=== PATIENT | male | born 1960 | race Caucasian/White ===

== ENCOUNTER 2018-01-19 09:57 | Emergency (ER) | payer MEDICARE, MEDICAID ==
[~2018-01-19] VITALS: Ht 172.7 cm; Wt 104.0 kg
[~2018-01-19 09:57] MED LIST: ASPI-1265 PO; ATOR80TA PO; CARV12.5 PO; CLON1PAT15 TOP; CLOP75TA15 PO; COL100C PO; FURO-150 PO; GABA300C PO; INSU100C4 SQ; INSU100I25 SQ; INSU100V12 SQ; LACT1CAP26 PO; LISI10TA4 PO; NYSPWD TP; PANT40TA4 PO; VENL75CA55 PO
[2018-01-19] MEDS ORDERED: morphine 4 MG/ML inj SYRINge IV ONE (10:10)
[2018-01-19] MEDS ORDERED: metoclopramide 5 mg/ml inj IV ONE (10:10)
[2018-01-19] MEDS ORDERED: diphenhydrAMINE 50 mg/ml inj IV ONE (10:10)
[2018-01-19] MEDS ORDERED: normal saline 1000ML IV soln IVB ONE (10:10)
[2018-01-19 10:55] LABS: BASOPHILS # (AUTO) 0.1 X10'3 (0-0.2); BASOPHILS % (AUTO) 1.5 % (0-1); EOSINOPHILS % (AUTO) 0.7 % (0-6); HEMOGLOBIN 10.2 g/dl (14.0-17.9); LYMPHOCYTES # (AUTO) 0.8 X10'3 (1.1-4.8); LYMPHOCYTES % (AUTO) 12.7 % (21-51); MEAN CORPUSCULAR HEMOGLOBIN 27.8 PG (27.0-31.0); MEAN CORPUSCULAR HGB CONC 33.1 % (33.0-36.5); MEAN PLATELET VOLUME 9.3 FL (7.4-10.4); MONOCYTES # (AUTO) 0.5 X10'3 (0-0.9); NEUTROPHILS # (AUTO) 4.6 X10'3 (1.8-7.7); NEUTROPHILS % (AUTO) 77.1 % (42-75); PLATELET COUNT 386 X10'3 (140-440); RED BLOOD COUNT 3.69 X10'6 (4.70-6.10); RED CELL DISTRIBUTION WIDTH 20.6 % (11.5-14.5); WHITE BLOOD COUNT 5.9 X10'3 (4.5-11.0)
[2018-01-19 10:58] LABS: INR 1.2 INR; PROTHROMBIN TIME 12.7 SECONDS (9.0-12.0)
[2018-01-19 11:06] LABS: ALANINE AMINOTRANSFERASE 49 U/L (12-78); ALBUMIN 2.6 G/DL (3.4-5.0); ALBUMIN/GLOBULIN RATIO 0.5 (1.1-1.5); ALKALINE PHOSPHATASE 442 IU/L (46-116); ANION GAP 13 (8-16); ASPARTATE AMINO TRANSFERASE 63 U/L (10-37); BLOOD UREA NITROGEN 26 MG/DL (7-18); CALCIUM 8.6 MG/DL (8.5-10.1); CHLORIDE 92 MMOL/L (99-107); CREATININE 1.24 MG/DL (0.60-1.10); MAGNESIUM 1.9 MG/DL (1.5-2.4); POTASSIUM 4.5 MMOL/L (3.5-5.1); SODIUM 129 MMOL/L (135-145); TOTAL CARBON DIOXIDE 23.9 MMOL/L (24-32); TOTAL PROTEIN 8.3 G/DL (6.4-8.2); eGFR 60 ML/MIN
[2018-01-19 11:07] LABS: GLUCOSE 463 MG/DL (70-104)
[2018-01-19] MEDS ORDERED: insulin regular, human 10 units/0.1 ml syringe SQ ONE (11:50)
[2018-01-19] MEDS ORDERED: insulin regular, human 10 units/0.1 ml syringe IV ONE (11:50)
[2018-01-19 18:26] VITALS: BP 160/106
== END 2018-01-19 18:29 | disposition home or self-care (01) ==
LOC: ER 09:58
DX: E11.65 Type 2 diabetes mellitus with hyperglycemia (principal); E86.0 Dehydration; I25.10 Atherosclerotic heart disease of native coronary artery without angina pectoris; I11.0 Hypertensive heart disease with heart failure; I50.9 Heart failure, unspecified; I25.2 Old myocardial infarction; Z98.890 Other specified postprocedural states; Z89.512 Acquired absence of left leg below knee; Z89.511 Acquired absence of right leg below knee; Z88.1 Allergy status to other antibiotic agents; Z79.4 Long term (current) use of insulin; Z79.899 Other long term (current) drug therapy
CPT/HCPCS: 36415; 71045; 80053; 82948; 83605; 83735; 84145; 85025; 85610; 87040; 96361; 96372; 96374; 96375; 99285; J1200; J1815; J2270; J2765; J7030

== ENCOUNTER 2018-01-23 16:54 | Inpatient (IN) | payer MEDICARE, MEDICAID ==
[~2018-01-23] VITALS: Ht 154.9 cm; Wt 70.0 kg
[~2018-01-23 16:54] MED LIST changes: -ASPI-1265 PO; -ATOR80TA PO; -CARV12.5 PO; -CLON1PAT15 TOP; -CLOP75TA15 PO; -COL100C PO; -FURO-150 PO; -LACT1CAP26 PO; -NYSPWD TP; -PANT40TA4 PO
[2018-01-23 17:23] LABS: BASOPHILS # (AUTO) 0.1 X10'3 (0-0.2); BASOPHILS % (AUTO) 0.8 % (0-1); EOSINOPHILS % (AUTO) 0.2 % (0-6); HEMATOCRIT 30.6 % (42.0-52.0); LYMPHOCYTES # (AUTO) 0.9 X10'3 (1.1-4.8); LYMPHOCYTES % (AUTO) 14.2 % (21-51); MEAN CORPUSCULAR HEMOGLOBIN 27.2 PG (27.0-31.0); MEAN CORPUSCULAR HGB CONC 32.7 % (33.0-36.5); MEAN CORPUSCULAR VOLUME 83.1 FL (78-98); MONOCYTES # (AUTO) 0.5 X10'3 (0-0.9); NEUTROPHILS # (AUTO) 4.6 X10'3 (1.8-7.7); NEUTROPHILS % (AUTO) 76.8 % (42-75); PLATELET COUNT 455 X10'3 (140-440); RED BLOOD COUNT 3.68 X10'6 (4.70-6.10); RED CELL DISTRIBUTION WIDTH 21.2 % (11.5-14.5)
[2018-01-23 17:34] LABS: INR 1.7 INR; PARTIAL THROMBOPLASTIN TIME 30 SECONDS (22-32); PROTHROMBIN TIME 17.1 SECONDS (9.0-12.0)
[2018-01-23 17:37] LABS: ALANINE AMINOTRANSFERASE 27 U/L (12-78); ALBUMIN 2.4 G/DL (3.4-5.0); ALBUMIN/GLOBULIN RATIO 0.5 (1.1-1.5); ALKALINE PHOSPHATASE 340 IU/L (46-116); ANION GAP 21 (8-16); ASPARTATE AMINO TRANSFERASE 27 U/L (10-37); BILIRUBIN,TOTAL 1.6 MG/DL (0.1-1.0); BLOOD UREA NITROGEN 22 MG/DL (7-18); BUN/CREATININE RATIO 15.7 (5.4-32.0); CALCIUM 8.5 MG/DL (8.5-10.1); CHLORIDE 93 MMOL/L (99-107); GLUCOSE 422 MG/DL (70-104); POTASSIUM 5.1 MMOL/L (3.5-5.1); SODIUM 130 MMOL/L (135-145); TOTAL CARBON DIOXIDE 15.8 MMOL/L (24-32); TOTAL PROTEIN 7.4 G/DL (6.4-8.2); eGFR 52 ML/MIN
[2018-01-23] MEDS ORDERED: insulin regular, human 10 units/0.1 ml syringe IV ONE (20:35)
[2018-01-23] MEDS ORDERED: normal saline 1000ML IV soln IVB ONE ×2 (20:35→22:30)
[2018-01-23] MEDS ORDERED: acetaminophen 325mg tablet PO ONE (21:00)
[2018-01-23 23:21] LABS: ABG BASE EXCESS -2.6 mmol/L (-2.0-3.0); ABG HCO3 19.2 mmol/L (22.0-26.0); ABG OXYGEN SATURATION 95.5 % (95-98); ABG PCO2 (T) 24.3 mmHg (35.0-48.0); ABG PH (T) 7.516 (7.350-7.450); ALLEN'S TEST Positive; FCOHb 0.5 % (0.5-1.5); FMetHb 0.3 % (0.3-1.12); FO2Hb 94.7 % (94-100); PATIENT TEMPERATURE 36.8; TOTAL HEMOGLOBIN 10.3 G/dl (14.0-18.0)
[2018-01-24] MEDS ORDERED: vancomycin/NS 1 GM ADD-VANTAGE 250 ML IV ONE ×2 (00:05→06:20)
[2018-01-24] MEDS ORDERED: normal saline 1000ml 1,000 ML IV ONE (00:05)
[2018-01-24] MEDS: piperacillin/tazo 3.375gm/50ml 50 ML IV SCH ×4 (02:13→20:11)
[2018-01-24] MEDS ORDERED: dextrose ORAL solution 15 GM/59 ML bottle PO PRN ×2 (02:35)
[2018-01-24] MEDS ORDERED: ondansetron/PF 4mg/2ml inj IV ONE (02:35)
[2018-01-24] MEDS ORDERED: glucagon, human recombinant 1mg kit SUBCUT PRN (02:35)
[2018-01-24] MEDS ORDERED: bisacodyl 10mg suppository rectal RC PRN (02:35)
[2018-01-24] MEDS ORDERED: mag hydrox/Alum hydrox/simeth 30ml oral suspension PO PRN (02:35)
[2018-01-24] MEDS ORDERED: MESSAGE TO PHARMACY PO ONE (02:35)
[2018-01-24] MEDS ORDERED: ondansetron/PF 4mg/2ml inj IV PRN (02:35)
[2018-01-24] MEDS ORDERED: acetaminophen 325mg tablet PO PRN (02:35)
[2018-01-24] MEDS ORDERED: dextrose 50%-water 50ml dispensing syringe IV PRN (02:35)
[2018-01-24] MEDS: sodium chloride 0.45% 1,000 ML IV SCH ×2 (03:16→12:34)
[2018-01-24 04:30] VITALS: BP 156/98
[2018-01-24] MEDS ORDERED: LORazepam 1 MG tablet PO ONE (04:30)
[2018-01-24 07:00] VITALS: BP 139/84
[2018-01-24] MEDS: insulin Lispro (HumaLOG) vial - multi-dose SQ SCH ×4 (08:43→22:11)
[2018-01-24] MEDS: heparin, porcine 5000 units/ml vial SQ SCH ×2 (08:44→20:10)
[2018-01-24 11:00] VITALS: BP 128/81
[2018-01-24 12:31] LABS: ABG BASE EXCESS -1.5 mmol/L (-2.0-3.0); ABG HCO3 21.4 mmol/L (22.0-26.0); ABG OXYGEN SATURATION 95.3 % (95-98); ABG PCO2 (T) 29.4 mmHg (35.0-48.0); ABG PH (T) 7.478 (7.350-7.450); ABG PO2 (T) 77.6 mmHg (83-108); ALLEN'S TEST Positive; FCOHb 0.9 % (0.5-1.5); FMetHb 0.3 % (0.3-1.12); FO2Hb 94.2 % (94-100); PATIENT TEMPERATURE 36.8; TOTAL HEMOGLOBIN 10.6 G/dl (14.0-18.0)
[2018-01-24 15:00] VITALS: BP 139/84
[2018-01-24 19:00] VITALS: BP 150/99
[2018-01-24] MEDS: lactobacillus rhamnosus 10,000 MMU CELLS/CAPSULE PO SCH (20:09)
[2018-01-24] MEDS: normal saline 1000ml 1,000 ML IV SCH (22:06)
[2018-01-24] MEDS: insulin glargine (Lantus) pen - multi-dose SQ SCH (22:15)
[2018-01-24 23:00] VITALS: BP 135/95
[2018-01-25] MEDS ORDERED: vancomycin/NS 1 GM ADD-VANTAGE 250 ML IV SCH (01:00)
[2018-01-25] MEDS: piperacillin/tazo 3.375gm/50ml 50 ML IV SCH ×4 (02:37→20:22)
[2018-01-25 03:00] VITALS: BP 148/84
[2018-01-25 05:50] LABS: BASOPHILS # (AUTO) 0.1 X10'3 (0-0.2); BASOPHILS % (AUTO) 2.2 % (0-1); EOSINOPHILS # (AUTO) 0.5 X10'3 (0-0.9); EOSINOPHILS % (AUTO) 7.7 % (0-6); HEMATOCRIT 30.5 % (42.0-52.0); HEMOGLOBIN 9.8 g/dl (14.0-17.9); LYMPHOCYTES % (AUTO) 16.3 % (21-51); MEAN CORPUSCULAR HEMOGLOBIN 26.9 PG (27.0-31.0); MEAN CORPUSCULAR HGB CONC 32.3 % (33.0-36.5); MEAN CORPUSCULAR VOLUME 83.3 FL (78-98); MEAN PLATELET VOLUME 8.7 FL (7.4-10.4); MONOCYTES # (AUTO) 0.5 X10'3 (0-0.9); MONOCYTES % (AUTO) 7.9 % (2-12); NEUTROPHILS % (AUTO) 65.9 % (42-75); PLATELET COUNT 388 X10'3 (140-440); RED BLOOD COUNT 3.65 X10'6 (4.70-6.10); RED CELL DISTRIBUTION WIDTH 21.1 % (11.5-14.5); WHITE BLOOD COUNT 6.1 X10'3 (4.5-11.0)
[2018-01-25 06:00] VITALS: BP 153/103
[2018-01-25 06:42] LABS: ALANINE AMINOTRANSFERASE 28 U/L (12-78); ALBUMIN/GLOBULIN RATIO 0.4 (1.1-1.5); ALKALINE PHOSPHATASE 276 IU/L (46-116); ANION GAP 10 (8-16); ASPARTATE AMINO TRANSFERASE 32 U/L (10-37); BILIRUBIN,TOTAL 0.8 MG/DL (0.1-1.0); BLOOD UREA NITROGEN 19 MG/DL (7-18); BUN/CREATININE RATIO 15.8 (5.4-32.0); CALCIUM 8.3 MG/DL (8.5-10.1); CHLORIDE 102 MMOL/L (99-107); GLUCOSE 147 MG/DL (70-104); POTASSIUM 3.4 MMOL/L (3.5-5.1); SODIUM 136 MMOL/L (135-145); TOTAL CARBON DIOXIDE 23.9 MMOL/L (24-32); TOTAL PROTEIN 6.5 G/DL (6.4-8.2); eGFR 62 ML/MIN
[2018-01-25] MEDS: lactobacillus rhamnosus 10,000 MMU CELLS/CAPSULE PO SCH ×2 (07:31→20:22)
[2018-01-25] MEDS: heparin, porcine 5000 units/ml vial SQ SCH ×2 (07:32→20:22)
[2018-01-25] MEDS: lisinopril 10 MG tablet PO SCH (08:59)
[2018-01-25] MEDS: insulin Lispro (HumaLOG) vial - multi-dose SQ SCH ×3 (09:01→20:21)
[2018-01-25] MEDS: normal saline 1000ml 1,000 ML IV SCH ×2 (09:03→21:40)
[2018-01-25 11:00] VITALS: BP 151/103
[2018-01-25] MEDS: vancomycin/NS 1 GM ADD-VANTAGE 250 ML IV SCH (13:14)
[2018-01-25 15:00] VITALS: BP 154/93
[2018-01-25 19:00] VITALS: BP 158/92
[2018-01-25] MEDS: insulin glargine (Lantus) pen - multi-dose SQ SCH (22:10)
[2018-01-25 23:00] VITALS: BP 146/93
[2018-01-26] MEDS: vancomycin/NS 1 GM ADD-VANTAGE 250 ML IV SCH ×2 (00:23→13:39)
[2018-01-26] MEDS: piperacillin/tazo 3.375gm/50ml 50 ML IV SCH ×4 (02:35→19:43)
[2018-01-26 03:00] VITALS: BP 162/47
[2018-01-26] MEDS: HYDROcodone/acetaminophen 5mg/325mg tablet PO PRN (03:05)
[2018-01-26 03:17] LABS: CLARITY,URINE SLIGHTLY CLOUDY (Clear); COLOR,URINE YELLOW (Yellow); GLUCOSE, URINE NEGATIVE (Neg); KETONES,URINE NEGATIVE (Neg); LEUKOCYTE ESTERASE ,URINE NEGATIVE (Neg); NITRITES, URINE NEGATIVE (Neg); OCCULT BLOOD,URINE TRACE-INTACT (Neg); PROTEIN,URINE NEGATIVE (Neg); UROBILINOGEN,URINE 0.2 E.U/dL (0.2-1.0)
[2018-01-26 03:22] LABS: UA COLLECTION TYPE NON-SPECIFIED
[2018-01-26 03:24] LABS: BACTERIA,URINE FEW /HPF (Neg); RBC,URINE 0-2 /HPF (0-2); SQUAMOUS EPITHELIAL CELL,UR FEW /LPF (FEW); URIC ACID CRYSTALS 4+ /HPF (NEGATIVE); WBC,URINE NONE SEEN /HPF (0-4)
[2018-01-26 06:00] VITALS: BP 145/92
[2018-01-26 06:03] LABS: BASOPHILS # (AUTO) 0.1 X10'3 (0-0.2); BASOPHILS % (AUTO) 0.5 % (0-1); EOSINOPHILS # (AUTO) 0.1 X10'3 (0-0.9); HEMATOCRIT 31.9 % (42.0-52.0); HEMOGLOBIN 10.4 g/dl (14.0-17.9); LYMPHOCYTES # (AUTO) 0.3 X10'3 (1.1-4.8); LYMPHOCYTES % (AUTO) 2.9 % (21-51); MEAN CORPUSCULAR HEMOGLOBIN 27.2 PG (27.0-31.0); MEAN CORPUSCULAR HGB CONC 32.4 % (33.0-36.5); MEAN PLATELET VOLUME 8.5 FL (7.4-10.4); MONOCYTES # (AUTO) 0.3 X10'3 (0-0.9); MONOCYTES % (AUTO) 2.8 % (2-12); NEUTROPHILS # (AUTO) 9.9 X10'3 (1.8-7.7); NEUTROPHILS % (AUTO) 92.8 % (42-75); PLATELET COUNT 420 X10'3 (140-440); RED CELL DISTRIBUTION WIDTH 21.6 % (11.5-14.5); WHITE BLOOD COUNT 10.6 X10'3 (4.5-11.0)
[2018-01-26 06:30] LABS: ALANINE AMINOTRANSFERASE 24 U/L (12-78); ALBUMIN/GLOBULIN RATIO 0.4 (1.1-1.5); ALKALINE PHOSPHATASE 262 IU/L (46-116); ANION GAP 11 (8-16); ASPARTATE AMINO TRANSFERASE 36 U/L (10-37); BILIRUBIN,TOTAL 0.9 MG/DL (0.1-1.0); BLOOD UREA NITROGEN 13 MG/DL (7-18); BUN/CREATININE RATIO 12.4 (5.4-32.0); CALCIUM 7.9 MG/DL (8.5-10.1); CHLORIDE 102 MMOL/L (99-107); CREATININE 1.05 MG/DL (0.60-1.10); GLUCOSE 129 MG/DL (70-104); POTASSIUM 3.2 MMOL/L (3.5-5.1); SODIUM 136 MMOL/L (135-145); TOTAL CARBON DIOXIDE 23.2 MMOL/L (24-32); TOTAL PROTEIN 6.5 G/DL (6.4-8.2); eGFR 72 ML/MIN
[2018-01-26] MEDS: lisinopril 10 MG tablet PO SCH (08:23)
[2018-01-26] MEDS: lactobacillus rhamnosus 10,000 MMU CELLS/CAPSULE PO SCH ×2 (08:23→19:43)
[2018-01-26] MEDS: heparin, porcine 5000 units/ml vial SQ SCH ×2 (08:24→19:44)
[2018-01-26] MEDS: insulin Lispro (HumaLOG) vial - multi-dose SQ SCH ×3 (08:32→19:59)
[2018-01-26] MEDS ORDERED: potassium Cl 20 mEq SR tablet PO PRN (09:00)
[2018-01-26] MEDS ORDERED: magnesium/D5W IVPB 100 ML IV PRN (09:00)
[2018-01-26] MEDS ORDERED: magnesium 4gm in 100ml NS 100 ML IV PRN (09:00)
[2018-01-26] MEDS ORDERED: magnesium Cl slow-release 64mg tablet PO PRN (09:00)
[2018-01-26] MEDS ORDERED: potassium Cl 40MEQ/NS 500ml 500 ML IV PRN ×2 (09:00)
[2018-01-26] MEDS: potassium Cl 20 mEq SR tablet PO PRN ×3 (09:43→19:44)
[2018-01-26 11:00] VITALS: BP 144/88
[2018-01-26] MEDS: normal saline 1000ml 1,000 ML IV SCH (11:00)
[2018-01-26] MEDS: LORazepam 2 mg/ml vial IV PRN ×2 (11:45→16:10)
[2018-01-26] MEDS: morphine 2 MG/ML inj. syringe IV PRN ×2 (11:46→16:10)
[2018-01-26] MEDS ORDERED: GABA400C PO (11:47)
[2018-01-26 15:00] VITALS: BP 152/100
[2018-01-26] MEDS: gabapentin 400mg capsule PO SCH (15:46)
[2018-01-26 19:00] VITALS: BP 152/107
[2018-01-26] MEDS: insulin glargine (Lantus) pen - multi-dose SQ SCH (21:39)
[2018-01-26 23:00] VITALS: BP 114/72
[2018-01-27] MEDS: normal saline 1000ml 1,000 ML IV SCH ×2 (00:20→11:54)
[2018-01-27] MEDS: gabapentin 400mg capsule PO SCH ×3 (00:22→17:34)
[2018-01-27] MEDS ORDERED: VANCOMYCIN LEVEL IV ONE (00:30)
[2018-01-27] MEDS: vancomycin/NS 1 GM ADD-VANTAGE 250 ML IV SCH (01:43)
[2018-01-27 01:45] LABS: ALANINE AMINOTRANSFERASE 20 U/L (12-78); ALBUMIN 1.9 G/DL (3.4-5.0); ALBUMIN/GLOBULIN RATIO 0.4 (1.1-1.5); ALKALINE PHOSPHATASE 228 IU/L (46-116); ANION GAP 6 (8-16); ASPARTATE AMINO TRANSFERASE 31 U/L (10-37); BILIRUBIN,TOTAL 0.7 MG/DL (0.1-1.0); BLOOD UREA NITROGEN 10 MG/DL (7-18); CALCIUM 7.7 MG/DL (8.5-10.1); CHLORIDE 104 MMOL/L (99-107); GLUCOSE 106 MG/DL (70-104); MAGNESIUM 1.5 MG/DL (1.5-2.4); POTASSIUM 3.5 MMOL/L (3.5-5.1); SODIUM 136 MMOL/L (135-145); TOTAL CARBON DIOXIDE 26.2 MMOL/L (24-32); TOTAL PROTEIN 6.2 G/DL (6.4-8.2); VANCOMYCIN,TROUGH 18.4 UG/ML (6.0-14.0); eGFR 76 ML/MIN
[2018-01-27 01:59] LABS: BASOPHILS % (AUTO) 0.7 % (0-1); EOSINOPHILS # (AUTO) 0.4 X10'3 (0-0.9); EOSINOPHILS % (AUTO) 7.4 % (0-6); HEMATOCRIT 30.8 % (42.0-52.0); HEMOGLOBIN 9.8 g/dl (14.0-17.9); LYMPHOCYTES # (AUTO) 0.9 X10'3 (1.1-4.8); LYMPHOCYTES % (AUTO) 18.1 % (21-51); MEAN CORPUSCULAR HEMOGLOBIN 26.9 PG (27.0-31.0); MEAN CORPUSCULAR HGB CONC 31.9 % (33.0-36.5); MEAN CORPUSCULAR VOLUME 84.3 FL (78-98); MEAN PLATELET VOLUME 8.9 FL (7.4-10.4); MONOCYTES # (AUTO) 0.4 X10'3 (0-0.9); MONOCYTES % (AUTO) 7.8 % (2-12); NEUTROPHILS # (AUTO) 3.5 X10'3 (1.8-7.7); PLATELET COUNT 326 X10'3 (140-440); RED BLOOD COUNT 3.65 X10'6 (4.70-6.10); RED CELL DISTRIBUTION WIDTH 21.7 % (11.5-14.5); WHITE BLOOD COUNT 5.2 X10'3 (4.5-11.0)
[2018-01-27 03:00] VITALS: BP 158/110
[2018-01-27] MEDS: piperacillin/tazo 3.375gm/50ml 50 ML IV SCH ×2 (03:00→08:32)
[2018-01-27 06:00] VITALS: BP 142/92
[2018-01-27] MEDS: lactobacillus rhamnosus 10,000 MMU CELLS/CAPSULE PO SCH ×2 (08:32→19:24)
[2018-01-27] MEDS: lisinopril 10 MG tablet PO SCH ×2 (08:32→22:07)
[2018-01-27] MEDS: heparin, porcine 5000 units/ml vial SQ SCH ×2 (08:33→19:26)
[2018-01-27] MEDS: insulin Lispro (HumaLOG) vial - multi-dose SQ SCH ×3 (08:43→19:32)
[2018-01-27 11:00] VITALS: BP 147/98
[2018-01-27] MEDS: morphine 2 MG/ML inj. syringe IV PRN (13:36)
[2018-01-27] MEDS: LORazepam 2 mg/ml vial IV PRN (13:36)
[2018-01-27] MEDS: doxycycline hyclate 100mg tablet.DR PO SCH (17:34)
[2018-01-27] MEDS: amox tr/potassium clavulanate 875/125mg TAB PO SCH (17:34)
[2018-01-27] MEDS ORDERED: gadopentetate dimeglumine 7.5 MMOL/15 ML syringe ONE (18:14)
[2018-01-27 19:00] VITALS: BP 158/108
[2018-01-27] MEDS: insulin glargine (Lantus) pen - multi-dose SQ SCH (22:12)
[2018-01-27 23:00] VITALS: BP 168/110
[2018-01-28] MEDS: gabapentin 400mg capsule PO SCH ×4 (00:25→23:48)
[2018-01-28] MEDS: normal saline 1000ml 1,000 ML IV SCH (00:28)
[2018-01-28 03:00] VITALS: BP 161/110
[2018-01-28 06:02] LABS: BASOPHILS # (AUTO) 0.1 X10'3 (0-0.2); BASOPHILS % (AUTO) 1.1 % (0-1); EOSINOPHILS # (AUTO) 0.5 X10'3 (0-0.9); EOSINOPHILS % (AUTO) 8.6 % (0-6); HEMATOCRIT 33.2 % (42.0-52.0); HEMOGLOBIN 10.6 g/dl (14.0-17.9); LYMPHOCYTES # (AUTO) 1.1 X10'3 (1.1-4.8); LYMPHOCYTES % (AUTO) 20.3 % (21-51); MEAN CORPUSCULAR HEMOGLOBIN 26.9 PG (27.0-31.0); MEAN CORPUSCULAR VOLUME 84.2 FL (78-98); MEAN PLATELET VOLUME 8.4 FL (7.4-10.4); MONOCYTES # (AUTO) 0.5 X10'3 (0-0.9); MONOCYTES % (AUTO) 8.8 % (2-12); NEUTROPHILS # (AUTO) 3.4 X10'3 (1.8-7.7); NEUTROPHILS % (AUTO) 61.2 % (42-75); PLATELET COUNT 350 X10'3 (140-440); RED BLOOD COUNT 3.94 X10'6 (4.70-6.10); RED CELL DISTRIBUTION WIDTH 22.1 % (11.5-14.5); WHITE BLOOD COUNT 5.5 X10'3 (4.5-11.0)
[2018-01-28 06:22] LABS: ALANINE AMINOTRANSFERASE 18 U/L (12-78); ALBUMIN 1.9 G/DL (3.4-5.0); ALBUMIN/GLOBULIN RATIO 0.4 (1.1-1.5); ALKALINE PHOSPHATASE 229 IU/L (46-116); ANION GAP 8 (8-16); ASPARTATE AMINO TRANSFERASE 31 U/L (10-37); BILIRUBIN,TOTAL 0.5 MG/DL (0.1-1.0); BLOOD UREA NITROGEN 10 MG/DL (7-18); BUN/CREATININE RATIO 10.2 (5.4-32.0); CALCIUM 8.1 MG/DL (8.5-10.1); CHLORIDE 106 MMOL/L (99-107); CREATININE 0.98 MG/DL (0.60-1.10); GLUCOSE 103 MG/DL (70-104); MAGNESIUM 1.6 MG/DL (1.5-2.4); POTASSIUM 3.8 MMOL/L (3.5-5.1); SODIUM 139 MMOL/L (135-145); TOTAL CARBON DIOXIDE 25.2 MMOL/L (24-32); TOTAL PROTEIN 6.6 G/DL (6.4-8.2); eGFR 78 ML/MIN
[2018-01-28 07:00] VITALS: BP 156/106
[2018-01-28] MEDS: lisinopril 10 MG tablet PO SCH ×2 (08:24→19:27)
[2018-01-28] MEDS: amox tr/potassium clavulanate 875/125mg TAB PO SCH ×3 (08:24→21:00)
[2018-01-28] MEDS: lactobacillus rhamnosus 10,000 MMU CELLS/CAPSULE PO SCH ×2 (08:24→19:26)
[2018-01-28] MEDS: doxycycline hyclate 100mg tablet.DR PO SCH ×2 (08:24→21:02)
[2018-01-28] MEDS: heparin, porcine 5000 units/ml vial SQ SCH ×2 (08:25→19:28)
[2018-01-28] MEDS: insulin Lispro (HumaLOG) vial - multi-dose SQ SCH ×3 (08:32→19:38)
[2018-01-28 11:00] VITALS: BP 155/111
[2018-01-28] MEDS: LORazepam 2 mg/ml vial IV PRN ×2 (11:32→21:00)
[2018-01-28] MEDS: morphine 2 MG/ML inj. syringe IV PRN ×2 (11:33→16:20)
[2018-01-28 19:00] VITALS: BP 154/100
[2018-01-28] MEDS: insulin glargine (Lantus) pen - multi-dose SQ SCH (21:25)
[2018-01-28 23:00] VITALS: BP 152/103
[2018-01-29 03:00] VITALS: BP 159/92
[2018-01-29] MEDS: dextrose 50%-water 50ml dispensing syringe IV PRN ×2 (05:21→06:31)
[2018-01-29 05:57] LABS: BASOPHILS # (AUTO) 0.1 X10'3 (0-0.2); BASOPHILS % (AUTO) 1.1 % (0-1); EOSINOPHILS # (AUTO) 0.2 X10'3 (0-0.9); EOSINOPHILS % (AUTO) 3.5 % (0-6); HEMATOCRIT 32.5 % (42.0-52.0); HEMOGLOBIN 10.6 g/dl (14.0-17.9); LYMPHOCYTES % (AUTO) 17.5 % (21-51); MEAN CORPUSCULAR HEMOGLOBIN 27.2 PG (27.0-31.0); MEAN CORPUSCULAR HGB CONC 32.6 % (33.0-36.5); MEAN CORPUSCULAR VOLUME 83.3 FL (78-98); MEAN PLATELET VOLUME 8.6 FL (7.4-10.4); MONOCYTES # (AUTO) 0.6 X10'3 (0-0.9); MONOCYTES % (AUTO) 10.1 % (2-12); NEUTROPHILS # (AUTO) 3.9 X10'3 (1.8-7.7); NEUTROPHILS % (AUTO) 67.8 % (42-75); PLATELET COUNT 349 X10'3 (140-440); RED CELL DISTRIBUTION WIDTH 21.7 % (11.5-14.5); WHITE BLOOD COUNT 5.8 X10'3 (4.5-11.0)
[2018-01-29 06:39] LABS: ALANINE AMINOTRANSFERASE 27 U/L (12-78); ALBUMIN 2.1 G/DL (3.4-5.0); ALBUMIN/GLOBULIN RATIO 0.4 (1.1-1.5); ALKALINE PHOSPHATASE 234 IU/L (46-116); ANION GAP 8 (8-16); ASPARTATE AMINO TRANSFERASE 34 U/L (10-37); BILIRUBIN,TOTAL 0.6 MG/DL (0.1-1.0); BLOOD UREA NITROGEN 11 MG/DL (7-18); CALCIUM 8.8 MG/DL (8.5-10.1); CHLORIDE 105 MMOL/L (99-107); CREATININE 0.92 MG/DL (0.60-1.10); MAGNESIUM 1.6 MG/DL (1.5-2.4); POTASSIUM 3.4 MMOL/L (3.5-5.1); SODIUM 139 MMOL/L (135-145); TOTAL CARBON DIOXIDE 25.8 MMOL/L (24-32); TOTAL PROTEIN 7.1 G/DL (6.4-8.2); eGFR 84 ML/MIN
[2018-01-29 06:42] LABS: GLUCOSE 39 MG/DL (70-104)
[2018-01-29 06:44] VITALS: BP 141/95
[2018-01-29] MEDS: lisinopril 10 MG tablet PO SCH ×2 (07:16→19:04)
[2018-01-29] MEDS: doxycycline hyclate 100mg tablet.DR PO SCH ×2 (07:16→17:39)
[2018-01-29] MEDS: lactobacillus rhamnosus 10,000 MMU CELLS/CAPSULE PO SCH ×2 (07:16→19:04)
[2018-01-29] MEDS: gabapentin 400mg capsule PO SCH ×2 (07:17→15:21)
[2018-01-29] MEDS: heparin, porcine 5000 units/ml vial SQ SCH ×2 (07:17→19:04)
[2018-01-29] MEDS: potassium Cl 20 mEq SR tablet PO PRN (07:17)
[2018-01-29 11:00] VITALS: BP 177/121
[2018-01-29] MEDS ORDERED: amLODIPine 5mg tablet PO ONE (12:30)
[2018-01-29 15:00] VITALS: BP 166/120
[2018-01-29] MEDS: LORazepam 2 mg/ml vial IV PRN ×2 (15:21→21:56)
[2018-01-29] MEDS: morphine 2 MG/ML inj. syringe IV PRN ×2 (15:22→21:56)
[2018-01-29] MEDS: amox tr/potassium clavulanate 875/125mg TAB PO SCH (17:39)
[2018-01-29 19:00] VITALS: BP 150/114
[2018-01-29] MEDS: insulin Lispro (HumaLOG) vial - multi-dose SQ SCH (19:04)
[2018-01-29 23:00] VITALS: BP 143/100
[2018-01-30] MEDS: gabapentin 400mg capsule PO SCH ×3 (00:51→16:33)
[2018-01-30 03:00] VITALS: BP 156/110
[2018-01-30 06:21] LABS: BASOPHILS # (AUTO) 0.1 X10'3 (0-0.2); BASOPHILS % (AUTO) 1.2 % (0-1); EOSINOPHILS # (AUTO) 0.4 X10'3 (0-0.9); EOSINOPHILS % (AUTO) 8.1 % (0-6); HEMATOCRIT 32.8 % (42.0-52.0); HEMOGLOBIN 10.8 g/dl (14.0-17.9); LYMPHOCYTES # (AUTO) 1.1 X10'3 (1.1-4.8); LYMPHOCYTES % (AUTO) 23.8 % (21-51); MEAN CORPUSCULAR HEMOGLOBIN 27.2 PG (27.0-31.0); MEAN CORPUSCULAR HGB CONC 32.9 % (33.0-36.5); MEAN CORPUSCULAR VOLUME 82.6 FL (78-98); MEAN PLATELET VOLUME 8.8 FL (7.4-10.4); MONOCYTES # (AUTO) 0.4 X10'3 (0-0.9); MONOCYTES % (AUTO) 8.9 % (2-12); NEUTROPHILS # (AUTO) 2.7 X10'3 (1.8-7.7); PLATELET COUNT 315 X10'3 (140-440); RED BLOOD COUNT 3.97 X10'6 (4.70-6.10); RED CELL DISTRIBUTION WIDTH 21.7 % (11.5-14.5); WHITE BLOOD COUNT 4.7 X10'3 (4.5-11.0)
[2018-01-30 06:25] LABS: MAGNESIUM 1.5 MG/DL (1.5-2.4)
[2018-01-30 06:48] VITALS: BP 145/103
[2018-01-30 06:53] LABS: ALANINE AMINOTRANSFERASE 23 U/L (12-78); ALBUMIN/GLOBULIN RATIO 0.4 (1.1-1.5); ALKALINE PHOSPHATASE 228 IU/L (46-116); ANION GAP 9 (8-16); ASPARTATE AMINO TRANSFERASE 36 U/L (10-37); BILIRUBIN,TOTAL 0.5 MG/DL (0.1-1.0); BLOOD UREA NITROGEN 12 MG/DL (7-18); CALCIUM 8.7 MG/DL (8.5-10.1); CHLORIDE 105 MMOL/L (99-107); CREATININE 0.92 MG/DL (0.60-1.10); GLUCOSE 124 MG/DL (70-104); SODIUM 139 MMOL/L (135-145); TOTAL CARBON DIOXIDE 24.8 MMOL/L (24-32); TOTAL PROTEIN 6.8 G/DL (6.4-8.2); eGFR 84 ML/MIN
[2018-01-30] MEDS: amox tr/potassium clavulanate 875/125mg TAB PO SCH ×2 (07:40→18:14)
[2018-01-30] MEDS: lisinopril 10 MG tablet PO SCH (07:40)
[2018-01-30] MEDS: lactobacillus rhamnosus 10,000 MMU CELLS/CAPSULE PO SCH ×2 (07:40→20:12)
[2018-01-30] MEDS: heparin, porcine 5000 units/ml vial SQ SCH ×2 (07:40→20:13)
[2018-01-30] MEDS: doxycycline hyclate 100mg tablet.DR PO SCH ×2 (07:40→18:14)
[2018-01-30] MEDS ORDERED: amLODIPine 2.5mg tablet PO SCH (08:00)
[2018-01-30] MEDS: insulin Lispro (HumaLOG) vial - multi-dose SQ SCH ×2 (09:19→14:45)
[2018-01-30] MEDS: LORazepam 2 mg/ml vial IV PRN ×2 (09:27→16:33)
[2018-01-30] MEDS: morphine 2 MG/ML inj. syringe IV PRN ×3 (09:28→21:44)
[2018-01-30] MEDS ORDERED: hydrALAZINE 20mg/ml inj. IV PRN (09:35)
[2018-01-30] MEDS: furosemide 20MG tablet PO SCH (10:41)
[2018-01-30] MEDS: lisinopril 20mg tablet PO SCH (10:41)
[2018-01-30 11:00] VITALS: BP 136/93
[2018-01-30 15:00] VITALS: BP 155/105
[2018-01-30 19:00] VITALS: BP 160/89
[2018-01-30 23:00] VITALS: BP 147/80
[2018-01-31 03:00] VITALS: BP 147/82
[2018-01-31] MEDS: morphine 2 MG/ML inj. syringe IV PRN (05:42)
[2018-01-31 06:00] VITALS: BP 161/103
[2018-01-31 06:19] LABS: MAGNESIUM 1.5 MG/DL (1.5-2.4); POTASSIUM 4.4 MMOL/L (3.5-5.1)
[2018-01-31] MEDS ORDERED: amLODIPine 2.5mg tablet PO SCH (08:00)
[2018-01-31] MEDS: insulin Lispro (HumaLOG) vial - multi-dose SQ SCH ×2 (08:29→12:42)
[2018-01-31] MEDS: LORazepam 2 mg/ml vial IV PRN (08:35)
[2018-01-31] MEDS: lisinopril 20mg tablet PO SCH (08:36)
[2018-01-31] MEDS: heparin, porcine 5000 units/ml vial SQ SCH (08:36)
[2018-01-31] MEDS: amox tr/potassium clavulanate 875/125mg TAB PO SCH (08:36)
[2018-01-31] MEDS: doxycycline hyclate 100mg tablet.DR PO SCH (08:36)
[2018-01-31] MEDS: gabapentin 400mg capsule PO SCH ×2 (08:36)
[2018-01-31] MEDS: lactobacillus rhamnosus 10,000 MMU CELLS/CAPSULE PO SCH (08:37)
[2018-01-31] MEDS: HYDROcodone/acetaminophen 5mg/325mg tablet PO PRN (08:37)
[2018-01-31] MEDS: furosemide 20MG tablet PO SCH (08:37)
[2018-01-31] MEDS ORDERED: amLODIPine 5mg tablet PO ONE (09:10)
[2018-01-31 11:00] VITALS: BP 129/93
[2018-02-01] MEDS ORDERED: amLODIPine 2.5mg tablet PO SCH (08:00)
== END 2018-01-31 14:50 | DRG 564 ==
LOC: ER 16:55 → ED HOLD 01-24 02:34 → PCU 3S 01-24 04:03
PROVIDERS: ADMIT Emergency Medicine; ATTEND Family Medicine
DX: T87.44 Infection of amputation stump, left lower extremity (principal); A41.9 Sepsis, unspecified organism; I42.9 Cardiomyopathy, unspecified; I50.42 Chronic combined systolic (congestive) and diastolic (congestive) heart failure; L03.116 Cellulitis of left lower limb; I13.0 Hypertensive heart and chronic kidney disease with heart failure and stage 1 through stage 4 chronic kidney disease, or unspecified chronic kidney disease; T87.81 Dehiscence of amputation stump; E11.43 Type 2 diabetes mellitus with diabetic autonomic (poly)neuropathy; K31.84 Gastroparesis; D64.9 Anemia, unspecified; E11.65 Type 2 diabetes mellitus with hyperglycemia; E78.5 Hyperlipidemia, unspecified; F41.9 Anxiety disorder, unspecified; G89.29 Other chronic pain; N18.9 Chronic kidney disease, unspecified; I25.10 Atherosclerotic heart disease of native coronary artery without angina pectoris; Y83.5 Amputation of limb(s) as the cause of abnormal reaction of the patient, or of later complication, without mention of misadventure at the time of the procedure; E11.21 Type 2 diabetes mellitus with diabetic nephropathy; E87.6 Hypokalemia; N50.89 Other specified disorders of the male genital organs; M46.47 Discitis, unspecified, lumbosacral region; E11.51 Type 2 diabetes mellitus with diabetic peripheral angiopathy without gangrene; I25.2 Old myocardial infarction; Z59.0 Homelessness; Z91.14 Patient's other noncompliance with medication regimen; Z91.19 Patient's noncompliance with other medical treatment and regimen; Z88.1 Allergy status to other antibiotic agents; Z79.899 Other long term (current) drug therapy; Z79.4 Long term (current) use of insulin; Z86.73 Personal history of transient ischemic attack (TIA), and cerebral infarction without residual deficits; Y92.89 Other specified places as the place of occurrence of the external cause
CPT/HCPCS: 36415; 36600; 71045; 73720; 74176; 80053; 80202; 81001; 82009; 82803; 82948; 83605; 83735; 84132; 84145; 84484; 85018; 85025; 85610; 85730; 87040; 87070; 93005; 93970; 96361; 96365; 96366; 96375; 99285; A4649; A6212; A6213; A6446; A6449; A9270; A9579; J1644; J1815; J2060; J2270; J2405; J2543; J3370; J7030

== ENCOUNTER 2018-02-07 09:40 | Day surgery (SDC) | payer MEDICARE, MEDICAID ==
[~2018-02-07 09:40] MED LIST changes: -GABA300C PO; +GABA400C PO
[2018-02-07] MEDS ORDERED: LIDOcaine 2% 5ml jelly ONE (10:18)
[2018-02-07] MEDS ORDERED: AMLO2.5T2 PO (15:05)
[2018-02-07] MEDS ORDERED: DULO60CA45 PO (15:05)
[2018-02-07] MEDS ORDERED: LACTC PO (15:06)
[2018-02-07] MEDS ORDERED: HYDR-569 PO (15:07)
[2018-02-07] MEDS ORDERED: FURO-150 PO (15:07)
== END 2018-02-07 11:45 | disposition home or self-care (01) ==
LOC: WOUND CARE 09:40
PROVIDERS: ATTEND Surgery
DX: T87.81 Dehiscence of amputation stump (principal); E11.622 Type 2 diabetes mellitus with other skin ulcer; L97.821 Non-pressure chronic ulcer of other part of left lower leg limited to breakdown of skin; E11.621 Type 2 diabetes mellitus with foot ulcer; L97.521 Non-pressure chronic ulcer of other part of left foot limited to breakdown of skin; E11.69 Type 2 diabetes mellitus with other specified complication; M86.672 Other chronic osteomyelitis, left ankle and foot; E11.65 Type 2 diabetes mellitus with hyperglycemia; E11.42 Type 2 diabetes mellitus with diabetic polyneuropathy; E11.51 Type 2 diabetes mellitus with diabetic peripheral angiopathy without gangrene; I25.10 Atherosclerotic heart disease of native coronary artery without angina pectoris; E78.5 Hyperlipidemia, unspecified; I11.0 Hypertensive heart disease with heart failure; I50.23 Acute on chronic systolic (congestive) heart failure; I25.2 Old myocardial infarction; F32.9 Major depressive disorder, single episode, unspecified; Z89.422 Acquired absence of other left toe(s); Z89.511 Acquired absence of right leg below knee; Z79.4 Long term (current) use of insulin; Z79.899 Other long term (current) drug therapy; Y83.5 Amputation of limb(s) as the cause of abnormal reaction of the patient, or of later complication, without mention of misadventure at the time of the procedure
CPT/HCPCS: 11042; 11045; 36416; 82948; 97605; A6021; A6206; A6212; A6222; A4456

== ENCOUNTER 2018-02-14 10:32 | Outpatient (CLI) | payer MEDICARE, MEDICAID ==
[~2018-02-14 10:32] MED LIST changes: +AMLO2.5T2 PO; +DULO60CA45 PO; +FURO-150 PO; +HYDR-569 PO; +LACTC PO; -VENL75CA55 PO
== END 2018-02-14 12:20 | disposition home or self-care (01) ==
LOC: WOUND CARE 10:32
PROVIDERS: ATTEND Surgery
DX: T87.81 Dehiscence of amputation stump (principal); E11.622 Type 2 diabetes mellitus with other skin ulcer; L97.821 Non-pressure chronic ulcer of other part of left lower leg limited to breakdown of skin; E11.621 Type 2 diabetes mellitus with foot ulcer; L97.521 Non-pressure chronic ulcer of other part of left foot limited to breakdown of skin; E11.69 Type 2 diabetes mellitus with other specified complication; M86.672 Other chronic osteomyelitis, left ankle and foot; E11.65 Type 2 diabetes mellitus with hyperglycemia; E11.42 Type 2 diabetes mellitus with diabetic polyneuropathy; E11.51 Type 2 diabetes mellitus with diabetic peripheral angiopathy without gangrene; I25.10 Atherosclerotic heart disease of native coronary artery without angina pectoris; E78.5 Hyperlipidemia, unspecified; I11.0 Hypertensive heart disease with heart failure; I50.23 Acute on chronic systolic (congestive) heart failure; I25.2 Old myocardial infarction; F32.9 Major depressive disorder, single episode, unspecified; Z89.422 Acquired absence of other left toe(s); Z89.511 Acquired absence of right leg below knee; Z79.4 Long term (current) use of insulin; Z79.899 Other long term (current) drug therapy; Y83.5 Amputation of limb(s) as the cause of abnormal reaction of the patient, or of later complication, without mention of misadventure at the time of the procedure
CPT/HCPCS: 36416; 82948; 97605; A6021; A6209

== ENCOUNTER 2018-02-21 10:20 | Day surgery (SDC) | payer MEDICARE, MEDICAID ==
[2018-02-21] MEDS ORDERED: LIDOcaine 2% 5ml jelly ONE (11:25)
== END 2018-02-21 13:00 | disposition home or self-care (01) ==
LOC: WOUND CARE 10:20
PROVIDERS: ATTEND Surgery
DX: T87.81 Dehiscence of amputation stump (principal); E11.622 Type 2 diabetes mellitus with other skin ulcer; L97.822 Non-pressure chronic ulcer of other part of left lower leg with fat layer exposed; E11.69 Type 2 diabetes mellitus with other specified complication; M86.672 Other chronic osteomyelitis, left ankle and foot; E11.65 Type 2 diabetes mellitus with hyperglycemia; E11.42 Type 2 diabetes mellitus with diabetic polyneuropathy; E11.51 Type 2 diabetes mellitus with diabetic peripheral angiopathy without gangrene; E11.21 Type 2 diabetes mellitus with diabetic nephropathy; E11.22 Type 2 diabetes mellitus with diabetic chronic kidney disease; I13.0 Hypertensive heart and chronic kidney disease with heart failure and stage 1 through stage 4 chronic kidney disease, or unspecified chronic kidney disease; I50.43 Acute on chronic combined systolic (congestive) and diastolic (congestive) heart failure; N18.2 Chronic kidney disease, stage 2 (mild); I42.9 Cardiomyopathy, unspecified; I25.10 Atherosclerotic heart disease of native coronary artery without angina pectoris; E78.5 Hyperlipidemia, unspecified; I25.2 Old myocardial infarction; F32.9 Major depressive disorder, single episode, unspecified; Z89.422 Acquired absence of other left toe(s); Z89.511 Acquired absence of right leg below knee; Z79.4 Long term (current) use of insulin; Z79.899 Other long term (current) drug therapy; Z86.73 Personal history of transient ischemic attack (TIA), and cerebral infarction without residual deficits; Z68.34 Body mass index [BMI] 34.0-34.9, adult; Z79.02 Long term (current) use of antithrombotics/antiplatelets; Z79.82 Long term (current) use of aspirin; Y83.5 Amputation of limb(s) as the cause of abnormal reaction of the patient, or of later complication, without mention of misadventure at the time of the procedure
CPT/HCPCS: 11042; 36416; 82948; 97605; A6206

== ENCOUNTER 2018-02-28 10:25 | Day surgery (SDC) | payer MEDICARE, MEDICAID ==
[2018-02-28] MEDS ORDERED: LIDOcaine 2% 5ml jelly ONE (10:52)
== END 2018-02-28 12:33 | disposition home or self-care (01) ==
LOC: WOUND CARE 10:25
PROVIDERS: ATTEND Surgery
DX: T87.81 Dehiscence of amputation stump (principal); E11.622 Type 2 diabetes mellitus with other skin ulcer; L97.822 Non-pressure chronic ulcer of other part of left lower leg with fat layer exposed; E11.69 Type 2 diabetes mellitus with other specified complication; M86.672 Other chronic osteomyelitis, left ankle and foot; E11.65 Type 2 diabetes mellitus with hyperglycemia; E11.42 Type 2 diabetes mellitus with diabetic polyneuropathy; E11.51 Type 2 diabetes mellitus with diabetic peripheral angiopathy without gangrene; E11.21 Type 2 diabetes mellitus with diabetic nephropathy; E11.22 Type 2 diabetes mellitus with diabetic chronic kidney disease; I13.0 Hypertensive heart and chronic kidney disease with heart failure and stage 1 through stage 4 chronic kidney disease, or unspecified chronic kidney disease; I50.43 Acute on chronic combined systolic (congestive) and diastolic (congestive) heart failure; N18.2 Chronic kidney disease, stage 2 (mild); I42.9 Cardiomyopathy, unspecified; I25.10 Atherosclerotic heart disease of native coronary artery without angina pectoris; E78.5 Hyperlipidemia, unspecified; I25.2 Old myocardial infarction; F32.9 Major depressive disorder, single episode, unspecified; Z89.422 Acquired absence of other left toe(s); Z89.511 Acquired absence of right leg below knee; Z79.4 Long term (current) use of insulin; Z79.899 Other long term (current) drug therapy; Z86.73 Personal history of transient ischemic attack (TIA), and cerebral infarction without residual deficits; Z68.34 Body mass index [BMI] 34.0-34.9, adult; Z79.02 Long term (current) use of antithrombotics/antiplatelets; Z79.82 Long term (current) use of aspirin; Y83.5 Amputation of limb(s) as the cause of abnormal reaction of the patient, or of later complication, without mention of misadventure at the time of the procedure
CPT/HCPCS: 15271; 15272; 36416; 82948; A6021; A6209; A6222; Q4106; A6250

== ENCOUNTER 2018-03-11 09:30 | Day surgery (SDC) | payer MEDICARE, MEDICAID ==
[2018-03-11] MEDS ORDERED: LIDOcaine 2% 5ml jelly ONE (10:20)
== END 2018-03-11 11:11 | disposition home or self-care (01) ==
LOC: WOUND CARE 09:30
PROVIDERS: ATTEND Surgery
DX: T87.81 Dehiscence of amputation stump (principal); E11.622 Type 2 diabetes mellitus with other skin ulcer; L97.822 Non-pressure chronic ulcer of other part of left lower leg with fat layer exposed; E11.69 Type 2 diabetes mellitus with other specified complication; M86.672 Other chronic osteomyelitis, left ankle and foot; E11.65 Type 2 diabetes mellitus with hyperglycemia; E11.42 Type 2 diabetes mellitus with diabetic polyneuropathy; E11.51 Type 2 diabetes mellitus with diabetic peripheral angiopathy without gangrene; E11.21 Type 2 diabetes mellitus with diabetic nephropathy; E11.22 Type 2 diabetes mellitus with diabetic chronic kidney disease; I13.0 Hypertensive heart and chronic kidney disease with heart failure and stage 1 through stage 4 chronic kidney disease, or unspecified chronic kidney disease; I50.43 Acute on chronic combined systolic (congestive) and diastolic (congestive) heart failure; N18.2 Chronic kidney disease, stage 2 (mild); I42.9 Cardiomyopathy, unspecified; I25.10 Atherosclerotic heart disease of native coronary artery without angina pectoris; E78.5 Hyperlipidemia, unspecified; I25.2 Old myocardial infarction; F32.9 Major depressive disorder, single episode, unspecified; Z89.422 Acquired absence of other left toe(s); Z89.511 Acquired absence of right leg below knee; Z79.4 Long term (current) use of insulin; Z79.899 Other long term (current) drug therapy; Z86.73 Personal history of transient ischemic attack (TIA), and cerebral infarction without residual deficits; Z68.34 Body mass index [BMI] 34.0-34.9, adult; Z79.02 Long term (current) use of antithrombotics/antiplatelets; Z79.82 Long term (current) use of aspirin; Y83.5 Amputation of limb(s) as the cause of abnormal reaction of the patient, or of later complication, without mention of misadventure at the time of the procedure
CPT/HCPCS: 11042; 11045; 36416; 82948; A6021; A6206; A6209; A6446

== ENCOUNTER 2018-03-18 09:36 | Outpatient (CLI) | payer MEDICARE, MEDICAID | END 2018-03-18 11:15 | disposition home or self-care (01) | LOC: WOUND CARE 09:36 → EDSTATUS 10:00 → WOUND CARE 11:15 | PROVIDERS: ATTEND Surgery | DX: T87.81 Dehiscence of amputation stump (principal); E11.622 Type 2 diabetes mellitus with other skin ulcer; L97.822 Non-pressure chronic ulcer of other part of left lower leg with fat layer exposed; E11.69 Type 2 diabetes mellitus with other specified complication; M86.672 Other chronic osteomyelitis, left ankle and foot; E11.65 Type 2 diabetes mellitus with hyperglycemia; E11.42 Type 2 diabetes mellitus with diabetic polyneuropathy; E11.51 Type 2 diabetes mellitus with diabetic peripheral angiopathy without gangrene; E11.21 Type 2 diabetes mellitus with diabetic nephropathy; E11.22 Type 2 diabetes mellitus with diabetic chronic kidney disease; I13.0 Hypertensive heart and chronic kidney disease with heart failure and stage 1 through stage 4 chronic kidney disease, or unspecified chronic kidney disease; I50.43 Acute on chronic combined systolic (congestive) and diastolic (congestive) heart failure; N18.2 Chronic kidney disease, stage 2 (mild); I42.9 Cardiomyopathy, unspecified; I25.10 Atherosclerotic heart disease of native coronary artery without angina pectoris; E78.5 Hyperlipidemia, unspecified; I25.2 Old myocardial infarction; F32.9 Major depressive disorder, single episode, unspecified; Z89.422 Acquired absence of other left toe(s); Z89.511 Acquired absence of right leg below knee; Z79.4 Long term (current) use of insulin; Z79.899 Other long term (current) drug therapy; Z86.73 Personal history of transient ischemic attack (TIA), and cerebral infarction without residual deficits; Z68.34 Body mass index [BMI] 34.0-34.9, adult; Z79.02 Long term (current) use of antithrombotics/antiplatelets; Z79.82 Long term (current) use of aspirin; Y83.5 Amputation of limb(s) as the cause of abnormal reaction of the patient, or of later complication, without mention of misadventure at the time of the procedure | CPT/HCPCS: 36416; 82948; 97605; A4456 ==

== ENCOUNTER 2018-03-24 06:04 | Emergency (ER) | payer MEDICARE, MEDICAID ==
[~2018-03-24] VITALS: Ht 142.2 cm; Wt 40.0 kg
[2018-03-24 06:17] VITALS: BP 0/0
[2018-03-24] MEDS ORDERED: sodium bicarbonate (8.4%) 1 mEq/ml syringe ONE (09:00)
[2018-03-24] MEDS ORDERED: amiodarone 50MG/ML inj IV ONE (09:00)
[2018-03-24] MEDS ORDERED: adenosine 3mg/ml 2ml vial IV ONE (09:00)
[2018-03-24] MEDS ORDERED: 0.9 % SODIUM CHLORIDE 10 ML VIAL ONE (09:00)
[2018-03-24] MEDS ORDERED: calcium chloride 100 MG/1 ML inj IV ONE (09:00)
== END 2018-03-24 09:42 | disposition expired ==
LOC: ER 06:05
DX: I46.9 Cardiac arrest, cause unspecified (principal); I25.10 Atherosclerotic heart disease of native coronary artery without angina pectoris; I50.9 Heart failure, unspecified; I11.0 Hypertensive heart disease with heart failure; I25.2 Old myocardial infarction; E11.9 Type 2 diabetes mellitus without complications; Z98.890 Other specified postprocedural states; Z86.73 Personal history of transient ischemic attack (TIA), and cerebral infarction without residual deficits; Z89.512 Acquired absence of left leg below knee; Z89.511 Acquired absence of right leg below knee; Z88.1 Allergy status to other antibiotic agents; Z79.899 Other long term (current) drug therapy; Z79.4 Long term (current) use of insulin
CPT/HCPCS: 92950; 99285; J0153; J0282; J7030